=== PATIENT | female | born 1975 | race Caucasian/White ===

== ENCOUNTER 2018-05-24 14:07 | Emergency (ER) | payer SELFPAY ==
[~2018-05-24] VITALS: Ht 167.6 cm; Wt 102.3 kg
[2018-05-24 14:20] VITALS: BP 142/72; TEMP 99.3
[2018-05-24 15:39] LABS: BASO % 0.4 % (0.0-2.0); EOS # 0.1 (0.0-0.7); EOS % 1.8 % (0-4.0); GRAN # 3.4 (1.4-6.5); GRAN % 46.7 % (42.2-75.2); HEMATOCRIT 39.3 % (37.0-47.0); HEMOGLOBIN 12.8 g/dl (12.5-16.0); LYMPH # 3.2 (1.2-3.4); LYMPH % 43.2 % (20.0-51.0); MEAN CELL VOLUME 92 fl (80.0-100.0); MEAN CORPUSCULAR HEMOGLOBIN 30 pg (27.0-31.0); MEAN CORPUSCULAR HGB CONC 33 g/dl (33.0-37.0); MEAN PLATELET VOLUME 9.3 fl (7.4-10.4); MONO # 0.6 (0.1-0.6); MONO % 7.6 % (1.7-9.3); PLATELET COUNT 268 K/mm3 (130-400); RED BLOOD COUNT 4.29 M/mm3 (4.10-5.30); REDCELL DISTRIBUTION WIDTH-CV 13.6 % (11.5-14.5)
[2018-05-24 15:56] LABS: ALANINE AMINOTRANSFERASE 36 U/L (9-52); ALBUMIN 3.8 gm/dL (3.5-5.0); ALKALINE PHOSPHATASE 56 U/L (50-136); ANION GAP 5 mmol/L (7-16); AST,SGOT 25 U/L (15-37); BILIRUBIN,TOTAL 0.3 mg/dL (0.0-1.0); BLOOD UREA NITROGEN 11 mg/dL (7-17); C-REACTIVE PROTEIN 0.7 mg/dL (0.0-0.9); CALCIUM 8.8 mg/dL (8.4-10.2); CARBON DIOXIDE 29 mmol/L (22-30); CHLORIDE 102 mmol/L (98-107); CREATININE, serum 0.59 mg/dL (0.52-1.25); GLUCOSE 94 mg/dL (74-106); POTASSIUM 3.9 mmol/L (3.4-5.0); SODIUM 136 mmol/L (137-145); TOTAL PROTEIN 7.6 gm/dL (6.4-8.2)
[2018-05-24 16:05] LABS: TROPONIN-I < 0.012 ng/mL (0.000-0.034)
[2018-05-24 16:48] VITALS: PULSE 82
== END 2018-05-24 16:50 | disposition home or self-care (01) ==
LOC: COL.ER 14:07
PROVIDERS: Physician Assistant
DX: R53.81 Other malaise (principal); Z90.89 Acquired absence of other organs; Z88.0 Allergy status to penicillin